=== PATIENT | male | born 1990 | race Caucasian/White ===

== ENCOUNTER 2022-06-27 10:23 | Emergency (ER) | payer SELFPAY ==
[~2022-06-27] VITALS: Ht 175.3 cm; Wt 97.2 kg
[2022-06-27] MEDS ORDERED: PENICILLIN V P500 MG PO (12:10)
== END 2022-06-27 12:17 | disposition home or self-care (01) ==
LOC: ED 10:23
DX: K02.9 Dental caries, unspecified (principal); Z87.891 Personal history of nicotine dependence
CPT/HCPCS: 99282

== ENCOUNTER 2024-07-01 20:14 | Emergency (ER) | payer SELFPAY ==
[~2024-07-01] VITALS: Ht 175.3 cm; Wt 100.7 kg
[~2024-07-01 20:14] MED LIST: PENICILLIN V P500 MG PO
[2024-07-01] MEDS ORDERED: AMOXICILLIN/CLAVULANATE K 875 MG HOME.PACK PO ONE (22:30)
[2024-07-01] MEDS ORDERED: CIPROFLOXACIN 0.3% 5 ML HOME.PACK OPTH ONE (22:30)
[2024-07-01] MEDS ORDERED: AMOX TR-K CLV1 EAC1 PO (22:31)
[2024-07-01 22:56] VITALS: BP 131/84
== END 2024-07-01 23:06 | disposition home or self-care (01) ==
LOC: ED 20:14
DX: H65.93 Unspecified nonsuppurative otitis media, bilateral (principal); H72.91 Unspecified perforation of tympanic membrane, right ear; H10.9 Unspecified conjunctivitis; Z87.891 Personal history of nicotine dependence
CPT/HCPCS: 99282